=== PATIENT | female | born 1990 | race Caucasian/White ===

== ENCOUNTER 2020-05-07 18:31 | Emergency (ER) | payer OTHER, SELFPAY ==
[~2020-05-07] VITALS: Ht 162.6 cm; Wt 45.0 kg
[2020-05-07 18:33] VITALS: BP 121/67
--- NOTE | 2020-05-07 19:00 | NUR ---
Pt ambulated to room 12 c/o left flank pain, painful urination and lower abd pressure with urination. Pt previously dx with an uti, finished rx on 05/02.
[2020-05-07 19:11] LABS: HCG UR SG 1.022 (1.003-1.030); MICROSCOPIC INDICATED
[2020-05-07] MEDS ORDERED: SODIUM CHLORIDE FLUSH 10ML SYR IVF ONE (19:30)
[2020-05-07 19:31] LABS: BASOPHILS # (AUTO) 0.11 x10^3/uL (0-0.1); BASOPHILS % (AUTO) 1 % (0-1); EOSINOPHILS # (AUTO) 0.06 x10^3/uL (0-0.4); EOSINOPHILS % (AUTO) 1 % (1-7); LYMPHOCYTES # (AUTO) 2.59 x10^3/uL (1-3.4); LYMPHOCYTES % (AUTO) 33 % (22-44); MD NO; MEAN CORPUSCULAR HEMOGLOBIN 29.9 pg (27.0-34.8); MEAN CORPUSCULAR HGB CONC 33.9 g/dL (32.4-35.8); MEAN CORPUSCULAR VOLUME 88.4 fL (80-100); MEAN PLATELET VOLUME 9.3 fL (7.4-10.4); MONOCYTES # (AUTO) 0.69 x10^3/uL (0.2-0.8); MONOCYTES % (AUTO) 9 % (2-9); NEUTROPHILS # (AUTO) 4.51 x10^3/uL (1.8-6.8); NEUTROPHILS % (AUTO) 57 % (42-75); PLATELET COUNT 221 x10^3/uL (130-400); RED BLOOD COUNT 4.53 x10^6/uL (3.82-5.3); RED CELL DISTRIBUTION WIDTH 13.4 % (9.6-15.2)
[2020-05-07 19:40] LABS: ALANINE AMINOTRANSFERASE 21 U/L (12-78); ALBUMIN 4.3 g/dL (3.4-5.0); ANION GAP 6 mmol/L (5-15); CALCIUM 8.7 mg/dL (8.5-10.1); CHLORIDE 111 mmol/L (98-107); CREATININE 0.69 mg/dL (0.55-1.02)
[2020-05-07 19:42] LABS: ALKALINE PHOSPHATASE 70 U/L (45-117); BILIRUBIN,TOTAL 0.3 mg/dL (0.2-1.0); TOTAL PROTEIN 7.5 g/dL (6.4-8.2)
[2020-05-07] MEDS ORDERED: OMNIPAQUE 350 MG/ML, 100ML BOTTLE ONE (20:19)
== END 2020-05-07 21:30 | disposition home or self-care (01) ==
LOC: ED 20:34
DX: R10.32 Left lower quadrant pain (principal); R30.0 Dysuria; R11.0 Nausea; Z87.891 Personal history of nicotine dependence
CPT/HCPCS: 36415; 74177; 80053; 81001; 81025; 83690; 85025; 87086; 99285; Q9967

== ENCOUNTER 2020-05-19 17:17 | Emergency (ER) | payer MEDICAID, OTHER ==
[~2020-05-19] VITALS: Ht 165.1 cm; Wt 36.2 kg
--- NOTE | 2020-05-19 17:24 | NUR ---
Assumed care of patient. C/O SI and lack of appetite. Patient not directly answering questions making interbiew difficult. Family member at bedside. Will continue to monitor.
--- NOTE | 2020-05-19 18:20 | NUR ---
MD Clara at bedside evaluating patient.
[2020-05-19 18:41] LABS: BASOPHILS # (AUTO) 0.03 x10^3/uL (0-0.1); BASOPHILS % (AUTO) 0 % (0-1); EOSINOPHILS # (AUTO) 0.07 x10^3/uL (0-0.4); EOSINOPHILS % (AUTO) 1 % (1-7); LYMPHOCYTES % (AUTO) 20 % (22-44); MD NO; MEAN CORPUSCULAR HEMOGLOBIN 29.7 pg (27.0-34.8); MEAN CORPUSCULAR HGB CONC 32.8 g/dL (32.4-35.8); MEAN PLATELET VOLUME 8.6 fL (7.4-10.4); MONOCYTES # (AUTO) 0.44 x10^3/uL (0.2-0.8); MONOCYTES % (AUTO) 5 % (2-9); NEUTROPHILS # (AUTO) 6.24 x10^3/uL (1.8-6.8); NEUTROPHILS % (AUTO) 74 % (42-75); PLATELET COUNT 276 x10^3/uL (130-400); RED BLOOD COUNT 4.66 x10^6/uL (3.82-5.3); RED CELL DISTRIBUTION WIDTH 13.8 % (9.6-15.2)
[2020-05-19 18:52] LABS: ALBUMIN 4.3 g/dL (3.4-5.0); ANION GAP 10 mmol/L (5-15); CALCIUM 8.8 mg/dL (8.5-10.1); CHLORIDE 111 mmol/L (98-107); CREATININE 0.78 mg/dL (0.55-1.02); SALICYLATE LEVEL < 1.7 mg/dL (2.8-20.0)
[2020-05-19 19:21] LABS: MICROSCOPIC INDICATED
[2020-05-19 19:29] LABS: AMPHETAMINE SCREEN, URINE Negative (Negative); BARBITURATE SCREEN, URINE Negative (Negative); BENZODIAZEPINE SCREEN, URINE Negative (Negative); CANNABINOID SCREEN, URINE Negative (Negative); COCAINE SCREEN, URINE Negative (Negative); METHADONE SCREEN, URINE Negative (Negative); OPIATE SCREEN, URINE Negative (Negative)
--- NOTE | 2020-05-19 19:43 | NUR ---
Report to RAYSHAWN Burdick
--- NOTE | 2020-05-19 19:52 | NUR ---
SNACK PROVIDED TO PATIENT, TELEPSYCH TAKING PLACE AT THIS TIME.
--- NOTE | 2020-05-19 22:46 | NUR ---
PT RESTING COMFORTABLY ON GURNEY, RESP EVEN AND UNLABORED. SITTER IN DIRECT LINE OF SIGHT. MONITORS IN PLACE. WILL CONTINUE TO MONITOR.
--- NOTE | 2020-05-20 00:27 | NUR ---
PT RESTING IN GURNEY, RESP EVEN AND UNLABORED. SITTER IN DIRECT LINE OF SIGHT. WAITING FOR PLACEMENT OF PATIENT.
--- NOTE | 2020-05-20 01:31 | NUR ---
PT TRANSFERRED INTO ROOM 38 WITH HOSPITAL BED. PT A&OX4, RESP EVEN AND UNLABORED. SITTER IN DIRECT LINE OF SIGHT.
--- NOTE | 2020-05-20 01:42 | NUR ---
PT BELONGINGS PLACED IN CORRECT BIN IN PT LOCKERS.
--- NOTE | 2020-05-20 04:10 | NUR ---
pt resting comfortably in hospital bed, resp even and unlabored. sitter in direct line of sight
--- NOTE | 2020-05-20 06:50 | NUR ---
RECEIVED REPORT FROM MARISA. PT SLEEPING ON GURNEY, NAD WITH EQUAL XHEST RISE/FALL, NO NEEDS AT THIS TIME, PT REMAINS IN SAFE ENVIRONMENT, SITTER IN FULL VIEW.
--- NOTE | 2020-05-20 08:00 | NUR ---
PT UPRIGHT ON GURNEY AWAKE, CALM & WATCHING TV, RESPONDS TO SATFF QUESTIONS/FOLLOWS COMMANDS, NAD, COMFORT MEASURES PROVIDED, CALL LIGHT WITHIN REACH.
--- NOTE | 2020-05-20 08:10 | NUR ---
BREAKFAST TRAY GIVEN
--- NOTE | 2020-05-20 09:05 | NUR ---
PT REMAINS UPRIGHT ON RNEY AWAKE, CALM & WATCHING TV, RESPONDS TO STAFF QUESTIONS/FOLLOWS COMMANDS, NAD, COMFORT MEASURES PROVIDED, CALL LIGHT WITHIN REACH.
--- NOTE | 2020-05-20 10:01 | NUR ---
PT SLEEPING ON GURNEY, NAD WITH EQUAL XHEST RISE/FALL, NO NEEDS AT THIS TIME, PT REMAINS IN SAFE ENVIRONMENT, SITTER IN FULL VIEW.
--- NOTE | 2020-05-20 11:03 | NUR ---
PT CONTINUES SLEEPING ON HOSPITAL BED, NAD WITH EQUAL CHEST RISE/FALL, NO NEEDS AT THIS TIME, PT REMAINS IN SAFE ENVIRONMENT, SITTER IN FULL VIEW.
--- NOTE | 2020-05-20 11:25 | NUR ---
PSYCH [facility]) AT BS.
[2020-05-20 12:06] VITALS: BP 105/70
--- NOTE | 2020-05-20 12:06 | NUR ---
TASK RN: PT TO BE DC. PT BELONGINGS RETUNRED TO PT
== END 2020-05-20 12:34 | disposition home or self-care (01) ==
LOC: ED 20:38
DX: F33.9 Major depressive disorder, recurrent, unspecified (principal); R45.851 Suicidal ideations; Z87.891 Personal history of nicotine dependence; R10.9 Unspecified abdominal pain
CPT/HCPCS: 36415; 80048; 80307; 81001; 82040; 84703; 85025; 99284